=== PATIENT | female | born 1940 | race Caucasian/White ===

== ENCOUNTER 2019-05-19 13:38 | Day surgery (SDC) | payer MEDICARE, OTHER ==
[~2019-05-19] VITALS: Ht 154.9 cm; Wt 96.1 kg
[~2019-05-19 13:38] MED LIST: Atarax10 MG PO; FOLI1 PO; FURO20 PO; K-Dur20 MEQ PO; LOVAZA1 GM PO; MELA3 PO; MOVE FREE JOIN1 EACH PO; PANT40 PO; ST. JOSEPH ASPI81 MG PO; [UNRECOGNIZED DRUG - OTHER]
--- NOTE | 2019-05-19 15:54 | NUR ---
05/19/19 1554 Christin Gomes LATE ENTRY-----DR MARK CAME AND ASKED IF I WAS COMFORTABLE DOING THE SEDATION FOR THIS PATIENT HE FELT LIKE SHE WAS A GOOD CANDIDATE FOR NURSE SEDATION. AFTER I DID AN ASSESSMENT OF THE PATIENT I AGREED WITH HIM THAT PATIENT WAS A GOOD CANDIDATE. DR MARK AND I DISCUSSED THIS WITH DR MILLIGAN AND HE AGREES TO HAVE CASE PROCEED WITH NURSE SEDATION
== END 2019-05-19 15:50 | disposition home or self-care (01) ==
LOC: ORSCSDS 13:38
PROVIDERS: Internal Medicine Gastroenterology
PROC: 0DJD8ZZ Inspection of Lower Intestinal Tract, Via Natural or Artificial Opening Endoscopic (ICD-10-PCS; principal; 2019-05-19 15:00)
DX: Z12.11 Encounter for screening for malignant neoplasm of colon (principal); K57.30 Diverticulosis of large intestine without perforation or abscess without bleeding; K55.20 Angiodysplasia of colon without hemorrhage; I10 Essential (primary) hypertension; Z87.891 Personal history of nicotine dependence; Z79.82 Long term (current) use of aspirin; Z79.899 Other long term (current) drug therapy
CPT/HCPCS: J2704; J7120

== ENCOUNTER → 2020-03-14 | Outpatient (CLI) | payer MEDICARE, OTHER | END | disposition home or self-care (01) | LOC: PLD 08:17 → LAB SHORT 08:17 | DX: D48.5 Neoplasm of uncertain behavior of skin (principal) | CPT/HCPCS: 88305 ==

== ENCOUNTER 2022-01-22 08:09 | Inpatient (IN) | payer MEDICARE, OTHER ==
[~2022-01-22] VITALS: Ht 152.4 cm; Wt 91.7 kg
[~2022-01-22 08:09] MED LIST changes: +C COMPLEX1000 M1 PO; +CALCIUM CIT 311 EAC7 PO; +FISH OIL PO; +IBUP800 PO; +MULVITA PO; +VITAMIN B125000 MC1 PO; +VITAMIN E400 UNIT PO; +ZYRTEC10 M2 PO
--- NOTE | 2022-01-22 10:26 | NUR ---
History, Chart, Medications and Allergies reviewed before start of procedure. Patient confirms NPO status and agrees with scheduled surgery. Lungs clear T/O to Auscultation.
--- NOTE | 2022-01-22 10:43 | NUR ---
PATIENT GAVE HER GLASSES TO HER EX-, DARION, FOR SAFE KEEPING.
--- NOTE | 2022-01-22 13:05 | NUR ---
dr carvajal here to do nerve block pt sats 100% pt placed on sat monitor and 10L O2 via non rebreather. stand by to assist dr carvajal as needed pt tolerated procedure well Peyton RN
--- NOTE | 2022-01-22 14:51 | NUR ---
01/22/22 1451 Vasiliy Pelayo NURSE NOTE: ANESTHESIA PERFORMED RIGHT NERVE BLOCK PRIOR TO SURGERY
--- NOTE | 2022-01-22 18:50 | NUR ---
SHIFT SUMMARY SINCE ARRIVAL TO UNIT AROUND 1644, PT HAS HAD SIPS OF WATER, BUT NOT MUCH APPETITE. CAN MOVE 3/5 OF HER FINGERS, ALL BUT THUMB & POINTER. SLING IN PLACE. CRYOTHERAPY IN USE. AQUACEL CONTINUES TO HAVE NO DRAINAGE.
[2022-01-22 22:01] LABS: BASOPHILS ABSOLUTE AUTO 0.03 K/mm3 (0.00-0.23); BASOPHILS PERCENT AUTO 0 % (0-2); EOSINOPHILS ABSOLUTE AUTO 0.03 K/mm3 (0.00-0.68); EOSINOPHILS PERCENT AUTO 0 % (0-6); Hematocrit 39.8 % (33.0-51.0); Hemoglobin 13.1 g/dL (11.5-16.0); IMMATURE GRAN ABSOLUTE AUTO 0.07 K/mm3 (0.00-0.10); IMMATURE GRAN PERCENT AUTO 1 % (0-1); LYMPHOCYTES PERCENT AUTO 6 % (21-46); MONOCYTES ABSOLUTE AUTO 0.18 K/mm3 (0.16-1.47); MONOCYTES PERCENT AUTO 1 % (4-13); Mean Corpuscular HGB 31.3 pg (26.0-34.0); Mean Corpuscular HGB Conc 32.9 g/dL (31.5-36.5); Mean Corpuscular Volume 95 fL (80-100); NEUTROPHILS ABSOLUTE AUTO 11.62 K/mm3 (1.96-9.15); NEUTROPHILS PERCENT AUTO 91 % (41-73); RDW Coefficient Variation 12.8 % (11.7-14.2); RDW Standard Deviation 44.3 fL (35.1-46.3); Red Blood Cell Count 4.18 M/mm3 (3.80-5.20); White Blood Cell Count 12.73 K/mm3 (4.00-11.30)
[2022-01-22 22:03] LABS: Mean Platelet Volume 10.1 fL (9.1-12.4); Platelet Count 180 K/mm3 (150-400)
[2022-01-22 22:27] LABS: Calcium, Blood 8.8 mg/dL (8.5-10.1); Creatinine, Blood 0.5 mg/dL (0.40-1.00); Potassium, Blood 4.1 mmol/L (3.5-5.5)
--- NOTE | 2022-01-23 | NUR ---
AT START OF SHIFT PT TACHY WITH HR 120-130'S WITH SBP 180'S. PT DENIES CP/PRESSURE. WAS 86-88% ON 1L O2, INCREASED TO 2L AND SATTING 94%. DR KIMBLE REQUESTED HOSPITALIST CONSULT FOR MANAGEMENT SO DR WASHINGTON WAS CONTACTED. DR WASHINGTON AND DR CAT CAME UP TO ASSESS PT. THIS RN PERFORMED EKG AT REQUEST OF DR WASHINGTON WHICH SHOWED SINUS TACH 120'S. CBC/BMP/TROP/D DIMER ORDERED. D DIMER ELEVATED AT 4.1. PT CONTINUES TO BE TACHY WITH HR 120-140'S. NOTIFIED DR WASHINGTON OF D DIMER AND HR, RECIEVED ORDER FOR [address] BOL[address] NS. DR WASHINGTON REPORTED NO CONCERN FOR CURRENT D DIMER LEVEL GIVEN THAT PT JUST HAD SURGERY TODAY. WILL START NS BOLUS AND CONTINUE TO MONITOR.
[2022-01-23 05:01] LABS: BASOPHILS ABSOLUTE AUTO 0.01 K/mm3 (0.00-0.23); BASOPHILS PERCENT AUTO 0 % (0-2); EOSINOPHILS PERCENT AUTO 0 % (0-6); Hematocrit 37.8 % (33.0-51.0); Hemoglobin 12.4 g/dL (11.5-16.0); IMMATURE GRAN ABSOLUTE AUTO 0.05 K/mm3 (0.00-0.10); IMMATURE GRAN PERCENT AUTO 1 % (0-1); LYMPHOCYTES ABSOLUTE AUTO 0.98 K/mm3 (0.84-5.20); LYMPHOCYTES PERCENT AUTO 10 % (21-46); MONOCYTES PERCENT AUTO 5 % (4-13); Mean Corpuscular HGB 30.7 pg (26.0-34.0); Mean Corpuscular HGB Conc 32.8 g/dL (31.5-36.5); Mean Corpuscular Volume 94 fL (80-100); NEUTROPHILS ABSOLUTE AUTO 8.16 K/mm3 (1.96-9.15); NEUTROPHILS PERCENT AUTO 84 % (41-73); Platelet Count 202 K/mm3 (150-400); RDW Coefficient Variation 12.4 % (11.7-14.2); RDW Standard Deviation 42.8 fL (35.1-46.3); Red Blood Cell Count 4.04 M/mm3 (3.80-5.20)
--- NOTE | 2022-01-23 05:17 | NUR ---
SHIFT SUMMARY PATIENT A&OX4, PLEASANT AND COOPERATIVE. PATIENT'S EVENING VITALS SHOWED SPO2 WAS IN THE HIGH 80'S PLACED ON 2L OXYGEN. PATIENT'S HR WAS ELEVATED IN THE 120-130'S EARLY IN THE SHIFT, DR WASHINGTON WAS CONTACTED (SEE NOTE), PLACED ON TELE. TOLERATING PO INTAKE WITH NO NAUSEA. VOIDING SBA TO BATHROOM. STILL REPORTS SOME NUMBNESS IN RIGHT EXTREMITY, ABLE TO MOVE ALL DIGITS. AQUACEL DRESSING C/D/I. CALL LIGHT WITHIN REACH.
[2022-01-23 05:34] LABS: Bun/Creatinine Ratio 33.3 (12.0-20.0); Calcium, Blood 8.6 mg/dL (8.5-10.1); Creatinine, Blood 0.51 mg/dL (0.40-1.00); Potassium, Blood 4.3 mmol/L (3.5-5.5)
--- NOTE | 2022-01-23 11:00 | NUR ---
TACHYCARDIA DISCUSSED PT's HR TREND OF MAINTAINING IN 130's & EVEN GOING INTO 140's WHEN WORKING w/ OT THIS AM AROUND 0940. NEW ORDER FOR EKG COMPLETED & NOTIFIED HOSPITALIST. NEW ORDER FOR METOPROLOL GIVEN & HE TRENDED FROM 130's TO MAINTAINING IN 60's. BP DECREASED WELL. PT REPORTED FEELING DIZZY WHEN WORKING w/ THERAPY AROUND 1045. CHANGED TO AN ORTHO CHAIR & RECLINED AFTER USING RESTROOM. REPORTS FEELING BETTER AT THIS TIME & DENIES NEEDS.
[2022-01-24 04:24] LABS: BASOPHILS ABSOLUTE AUTO 0.04 K/mm3 (0.00-0.23); BASOPHILS PERCENT AUTO 0 % (0-2); EOSINOPHILS ABSOLUTE AUTO 0.08 K/mm3 (0.00-0.68); EOSINOPHILS PERCENT AUTO 1 % (0-6); Hematocrit 33.6 % (33.0-51.0); Hemoglobin 11.2 g/dL (11.5-16.0); IMMATURE GRAN ABSOLUTE AUTO 0.04 K/mm3 (0.00-0.10); IMMATURE GRAN PERCENT AUTO 0 % (0-1); LYMPHOCYTES ABSOLUTE AUTO 2.56 K/mm3 (0.84-5.20); LYMPHOCYTES PERCENT AUTO 28 % (21-46); MONOCYTES ABSOLUTE AUTO 0.68 K/mm3 (0.16-1.47); MONOCYTES PERCENT AUTO 7 % (4-13); Mean Corpuscular HGB 31.2 pg (26.0-34.0); Mean Corpuscular HGB Conc 33.3 g/dL (31.5-36.5); Mean Corpuscular Volume 94 fL (80-100); Mean Platelet Volume 10.1 fL (9.1-12.4); NEUTROPHILS ABSOLUTE AUTO 5.82 K/mm3 (1.96-9.15); NEUTROPHILS PERCENT AUTO 63 % (41-73); Platelet Count 164 K/mm3 (150-400); RDW Coefficient Variation 12.7 % (11.7-14.2); RDW Standard Deviation 43.6 fL (35.1-46.3); Red Blood Cell Count 3.59 M/mm3 (3.80-5.20); White Blood Cell Count 9.22 K/mm3 (4.00-11.30)
[2022-01-24 04:44] LABS: Albumin, Blood 2.8 g/dL (3.4-5.0); Anion Gap 5 mmol/L (6-16); Blood Urea Nitrogen 20 mg/dL (8-24); Bun/Creatinine Ratio 29.5 (12.0-20.0); CO2, Blood 24 mmol/L (21-32); Calcium, Blood 8.7 mg/dL (8.5-10.1); Chloride, Blood 111 mmol/L (98-108); Creatinine, Blood 0.68 mg/dL (0.40-1.00); Glomerular Filtration Rate 87 (60-); Glucose, Blood 107 mg/dL (70-99); Phosphorus, Blood 2.6 mg/dL (2.5-4.9); Potassium, Blood 4.2 mmol/L (3.5-5.5); Sodium, Blood 140 mmol/L (136-145)
--- NOTE | 2022-01-24 05:24 | NUR ---
SHIFT SUMMARY A/O X3- STAND BY ASSIST IN THE ROOM. POD2 R TOTAL REV SHOULDER, AQUACEL DRESSING C/D/I, SLING IN PLACE. VOIDING WELL. TOLERATING PO INTAKE. VITAL SIGNS STABLE. PAIN MANAGED WELL W/ PO PAIN MEDICATIONS. NO ACUTE CHANGES THIS SHIFT, WILL CONTINUE TO MONITOR AND REPORT TO ONCOMING RN.
[2022-01-24] MEDS ORDERED: Percocet 5-3251 EACH PO (10:14)
[2022-01-24] MEDS ORDERED: Aspir 8181 MG PO (10:14)
--- NOTE | 2022-01-24 12:01 | NUR ---
DISCHARGE SUMMARY POD2 R REVERSE TSA, A/OX4, VSS, TOLERATING PO, AMBULATING INDEPENDENTLY, VOIDING WELL. DISCUSSED DISCHARGE INFORMATION WITH THE PATIENT AND HER SUPPORT PERSON INCLUDING MEDICATIONS, HOME CARE, DRESSING CHANGES, FOLLOW UP APPOINTMENTS AND CONTACT INFORMATION SHOULD QUESTIONS COME UP AFTER SHE LEAVES TODAY. PROVIDED AN EXTRA DRESSING TO CHANGE ORDERD IN 5 DAYS. PT HAD NO QUESTIONS. IV ACCESS REMOVED AND NO OTHER DEVICES IN PLACE. PT ESCORTED OUT VIA WC TO PRIVATE AUT[employer] TO GO HOME.
== END 2022-01-24 10:31 | disposition home or self-care (01) | DRG 483 ==
LOC: SURS 08:09 → PRE IP 10:00 → SURS 16:47
PROVIDERS: Family Medicine; ADMIT Orthopaedic Surgery
PROC: 0RRJ00Z Replacement of Right Shoulder Joint with Reverse Ball and Socket Synthetic Substitute, Open Approach (ICD-10-PCS; principal; 2022-01-22 14:00)
DX: M19.011 Primary osteoarthritis, right shoulder (principal); I10 Essential (primary) hypertension; K21.9 Gastro-esophageal reflux disease without esophagitis; M54.9 Dorsalgia, unspecified; G89.29 Other chronic pain; E66.9 Obesity, unspecified; E78.00 Pure hypercholesterolemia, unspecified; R00.0 Tachycardia, unspecified; R09.02 Hypoxemia; R79.1 Abnormal coagulation profile; Z98.890 Other specified postprocedural states; Z90.49 Acquired absence of other specified parts of digestive tract; Z90.710 Acquired absence of both cervix and uterus; Z87.891 Personal history of nicotine dependence; Z88.8 Allergy status to other drugs, medicaments and biological substances; Z91.018 Allergy to other foods; Z91.038 Other insect allergy status; Z88.5 Allergy status to narcotic agent; Z79.899 Other long term (current) drug therapy; Z79.82 Long term (current) use of aspirin; Z79.01 Long term (current) use of anticoagulants; Z96.619 Presence of unspecified artificial shoulder joint; Z98.1 Arthrodesis status; Z68.39 Body mass index [BMI] 39.0-39.9, adult
CPT/HCPCS: 36415; 71260; 73030; 80048; 80069; 83880; 84484; 85025; 85379; 93005; 93010; 94760; 97110; 97116; 97162; 97165; 97530; 97535; A9270; C1776; J0171; J0690; J0735; J1100; J1885; J2250; J2370; J2405; J2704; J2795; J3010; J7040; J7120; Q9967

== ENCOUNTER → 2022-04-11 | Outpatient (CLI) | payer MEDICARE, OTHER ==
[~2022-04-11] MED LIST changes: +Aspir 8181 MG PO; +Percocet 5-3251 EACH PO
== END | disposition home or self-care (01) ==
LOC: PLD 12:35 → LAB SHORT 12:35
DX: L82.1 Other seborrheic keratosis (principal)
CPT/HCPCS: 88305

== ENCOUNTER 2024-08-06 06:11 | Day surgery (SDC) | payer MEDICARE, OTHER ==
[~2024-08-06] VITALS: Ht 152.4 cm; Wt 87.3 kg
[2024-08-06] MEDS ORDERED: CeFAZolin Sodium 2,000 MG VIAL ONE (06:28)
[2024-08-06] MEDS ORDERED: Tranexamic Acid 100 ML IV ONE (06:32)
[2024-08-06] MEDS ORDERED: Ropivacaine 0.5% HCl/Pf 123.125 MG,EPINEPHrine HCL 0.25 MG,Ketorolac Tromethamine 15 MG... INFIL SCH (07:00)
[2024-08-06] MEDS ORDERED: Chlorhexidine Mouth Care 15 ML UDC MT SCH (07:00)
[2024-08-06] MEDS ORDERED: Rocuronium Bromide 10 MG/ML 5ML Injection IV ONE (07:00)
[2024-08-06] MEDS ORDERED: Midazolam HCl 1MG / ML 2ML Vial ONE (07:00)
[2024-08-06] MEDS ORDERED: propofoL 20 ML IV ONE (07:00)
[2024-08-06] MEDS ORDERED: Bupivacaine 0.5% HCl 5 MG/ML 30MLVIAL ONE (07:03)
[2024-08-06] MEDS ORDERED: Lactated Ringer's 1,000 ML IV ONE ×2 (07:20→09:35)
[2024-08-06] MEDS ORDERED: OxyCODONE HCL 10 MG TABCR ONE (07:20)
[2024-08-06] MEDS ORDERED: Acetaminophen 500 MG Tab ONE (07:21)
--- NOTE | 2024-08-06 07:43 | NUR ---
08/06/24 0743 Savanah Meza PT RECEIVED NERVE BLOCK. NERVE BLOCK PERFORMED BY DR. DANIELSON. PT TOLERATED BLOCK WELL. SP02 MONITORED DURING PROCEDURE, VSS. TIME OUT: 729 START TIME: 732 END TIME: 735
[2024-08-06] MEDS ORDERED: Phenylephrine HCl 100 MCG/ML-NS 10MLSYR (1MG/10ML) ONE (07:46)
[2024-08-06] MEDS ORDERED: Ketorolac Tromethamine 30mg Vial ONE ×2 (08:04→10:27)
[2024-08-06] MEDS ORDERED: Sugammadex Sodium 200 MG/2ML SDV (100 MG/ML) ONE (08:04)
[2024-08-06] MEDS ORDERED: Esmolol HCL 10 MG/ML 10ML VIAL ONE (08:06)
[2024-08-06] MEDS ORDERED: ePHEDrine Sulfate 50 MG/ML 1ML Injection ONE (08:06)
--- NOTE | 2024-08-06 10:09 | NUR ---
08/06/[address] NOTIFIED OF ELEVATED HR
[2024-08-06] MEDS ORDERED: Metoprolol Tartrate 5 ML IV ONE (10:10)
[2024-08-06] MEDS ORDERED: Ondansetron HCl 2 MG / ML 2ML Vial ONE (10:27)
[2024-08-06] MEDS ORDERED: FentaNYL Citrate 50 MCG/ML 2 ML Injection ONE (10:27)
[2024-08-06] MEDS ORDERED: Dexamethasone Sod Phos 10 MG/ML 1ML VIAL ONE (10:27)
--- NOTE | 2024-08-06 11:38 | NUR ---
08/06/24 1138 Taylor Son SISTER AND BROTHER IN LAW UPDATED ON PATIENT STATUS
[2024-08-06 12:22] VITALS: BP 104/64
== END 2024-08-06 12:22 | disposition home or self-care (01) ==
LOC: ORSCSDS 06:11
PROVIDERS: Orthopaedic Surgery
PROC: 0RRK00Z Replacement of Left Shoulder Joint with Reverse Ball and Socket Synthetic Substitute, Open Approach (ICD-10-PCS; principal; 2024-08-06 07:30)
DX: M12.812 Other specific arthropathies, not elsewhere classified, left shoulder (principal); I10 Essential (primary) hypertension; K21.9 Gastro-esophageal reflux disease without esophagitis; E66.9 Obesity, unspecified; Z68.38 Body mass index [BMI] 38.0-38.9, adult; Z79.899 Other long term (current) drug therapy; Z87.891 Personal history of nicotine dependence
CPT/HCPCS: A9270; C1713; C1776; J0171; J0690; J0735; J1100; J1885; J2250; J2371; J2405; J2704; J2795; J3010; J7120